=== PATIENT | female | born 1945 | race Caucasian/White ===

== ENCOUNTER → 2021-05-31 15:27 | Outpatient (CLI) | payer OTHER, SELFPAY ==
--- NOTE | 2021-05-31 15:31 | XR_ITS ---
FINAL REPORT CLINICAL HISTORY: SOB FINDINGS: Two views of the chest were obtained. The heart size and pulmonary vascularity are within normal limits. The mediastinum is normal. The lungs are hyperinflated consistent with COPD. There are bibasilar opacities. There are small bilateral pleural effusions. There is no pneumothorax. The bony thorax is intact. IMPRESSION: Small bilateral pleural effusions with bibasilar opacities that could represent atelectasis or pneumonia. Reviewed, Interpreted and Dictated by Dawit Hicks III, MD Transcribed by Maurice Landa Authenticated by Dawit Hicks III, MD on 05/31/2021 04:32:08 PM [facility]
== END ==
PROVIDERS: PCP Family Medicine; Visit Provider Family Medicine
DX: R06.02 Shortness of breath (principal)
CPT/HCPCS: 71046

== ENCOUNTER → 2021-07-31 12:12 | Outpatient (CLI) | payer MEDICARE, SELFPAY ==
--- NOTE | 2021-07-31 12:26 | XR_ITS ---
FINAL REPORT CLINICAL HISTORY: PNEUMONIA OD LT LOWER LOBE followup COMPARISON: May 31, 2021 FINDINGS: Two views of the chest were obtained. The heart size and pulmonary vascularity are within normal limits. The mediastinum is normal. The lungs are hyperinflated consistent with COPD. There is improved left basilar opacity. There is no new infiltrate. There are small bilateral pleural effusions. There is no pneumothorax. There is moderate degenerative change of the thoracic spine. IMPRESSION: Improved left base opacity. Reviewed, Interpreted and Dictated by Dawit Hicks III, MD Transcribed by Maurice Landa Authenticated by Dawit Hicks III, MD on 07/31/2021 02:07:16 PM [facility]
== END ==
PROVIDERS: PCP Family Medicine; Visit Provider Nurse Practitioner Family
DX: J18.9 Pneumonia, unspecified organism (principal)
CPT/HCPCS: 71046

== ENCOUNTER → 2021-08-31 12:36 | Outpatient (CLI) | payer MEDICARE, SELFPAY ==
--- NOTE | 2021-08-31 12:43 | XR_ITS ---
FINAL REPORT CLINICAL HISTORY: PNEUMONIA LT LOWER LOBE COMPARISON: July 31, 2021 FINDINGS: Two views of the chest were obtained. The heart size and pulmonary vascularity are within normal limits. The mediastinum is normal. The lungs are hyperinflated consistent with COPD. There is mild scarring. There is a small left pleural effusion versus pleural thickening. There is no pneumothorax. The bony thorax is intact. IMPRESSION: Small left pleural effusion versus pleural thickening. Reviewed, Interpreted and Dictated by Dawit Hicks III, MD Transcribed by Maurice Landa Authenticated by Dawit Hicks III, MD on 08/31/2021 02:51:53 PM [facility]
== END ==
PROVIDERS: PCP Nurse Practitioner Family; Visit Provider Nurse Practitioner Family
DX: J18.9 Pneumonia, unspecified organism (principal)
CPT/HCPCS: 71046

== ENCOUNTER → 2021-09-06 15:18 | Outpatient (CLI) | payer MEDICARE, SELFPAY ==
--- NOTE | 2021-09-06 15:22 | CT_ITS ---
FINAL REPORT TECHNIQUE: Axial images were obtained from the lung apex to the mid abdomen by computed tomography. Coronal reformatted images were obtained. This study was performed with techniques to keep radiation doses as low as reasonably achievable, (ALARA). Individualized dose reduction techniques using automated exposure control or adjustment of mA and/or kV according to the patient''s size were employed. CLINICAL HISTORY: PLEURAL EFFUSION, LEFT FINDINGS: CT CHEST W/O CONTRAST There is no axillary adenopathy. There is no hilar or mediastinal adenopathy. Heart size is normal. There is no pericardial or pleural effusion. Limited images of the upper abdomen are unremarkable. On the lung window images, there are moderate changes of emphysema and mild pulmonary scarring. There are numerous, small, less than 5 mm nodules mostly in the lung bases. Some of these nodules are calcified. There is a right posterior diaphragmatic hernia containing fat and measuring up to 7.3 cm transversely. IMPRESSION: No acute process. Reviewed, Interpreted and Dictated by Dawit Hicks III, MD Transcribed by Yesi Mayes Authenticated by Dawit Hicks III, MD on 09/06/2021 04:36:50 PM [facility]
== END ==
PROVIDERS: PCP Nurse Practitioner Family; Visit Provider Nurse Practitioner Family
DX: J90 Pleural effusion, not elsewhere classified (principal)
CPT/HCPCS: 71250